=== PATIENT | male | born 1970 | race Caucasian/White ===

== ENCOUNTER 2017-06-14 11:57 | Emergency (ER) | payer BC ==
[2017-06-14 12:28] VITALS: BP 113/73
--- NOTE | 2017-06-14 13:05 | UC ---
Throat Pain/Nasal Sandip HPI - HPI Summary HPI Summary: SORE THROAT X 1 DAY NO FEVER, NO CHILLS, NO COUGH, NO NASAL CONGESTION SON WAS DX WITH STREP - History of Current Complaint Chief Complaint: UCGeneralIllness Stated Complaint: SORE THROAT Time Seen by Provider: 06/14/17 12:59 Hx Obtained From: Patient Onset/Duration: Gradual Onset, Lasting Days - 1, Still Present Severity: Moderate Pain Intensity: 2 Cough: None Associated Signs & Symptoms: Negative: Wheezing, Hoarseness, Sinus Discomfort, Nasal Discharge, Fever, Vomiting, Rash - Allergies/Home Medications Allergies/Adverse Reactions: Allergies Allergy/AdvReac Type Severity Reaction Status Date / Time No Known Allergies Allergy Verified 06/14/17 12:26 Home Medications: Home Medications Tamsulosin CAP* [Flomax CAP*] 0.4 mg PO BEDTIME 06/14/17 [History Confirmed ] PMH/Surg Hx/FS Hx/Imm Hx Previously Healthy: Yes - Surgical History Surgical History: Yes Surgery Procedure, Year, and Place: Gastric Sleeve, 03/15/14, [facility] [place], [place] - Family History Known Family History: Positive: Hypertension - Social History Alcohol Use: Rare Substance Use Type: None Smoking Status (MU): Never Smoked Tobacco Amount Used/How Often: CLOVES 1 PPD X 6-7 YEARS When Did the Patient Quit Smoking/Using Tobacco: 10 YEARS - Immunization History Most Recent Influenza Vaccination: Not the 2015/2016 Season Most Recent Tetanus Shot: 02/14/13 Most Recent Pneumonia Vaccination: HAS NOT HAD Review of Systems Constitutional: Negative Skin: Negative Eyes: Negative ENT: Sore Throat Respiratory: Negative Cardiovascular: Negative Gastrointestinal: Negative Is Patient Immunocompromised?: No All Other Systems Reviewed And Are Negative: Yes Physical Exam Triage Information Reviewed: Yes Appearance: Well-Appearing, No Pain Distress, Well-Nourished Vital Signs: Initial Vital Signs Temp 98.6 F 06/14/17 12:23 Pulse 58 06/14/17 12:23 Resp 14 06/14/17 12:23 BP 113/73 06/14/17 12:23 Pulse Ox 100 06/14/17 12:23 Vital Signs Reviewed: Yes Eye Exam: Normal Eyes: Positive: Conjunctiva Clear ENT: Positive: Normal ENT inspection, Hearing grossly normal, Pharyngeal erythema. Negative: Nasal congestion, Nasal drainage Neck exam: Normal Neck: Positive: Supple, Nontender, No Lymphadenopathy Respiratory: Positive: Chest non-tender, Lungs clear, Normal breath sounds, No respiratory distress Cardiovascular: Positive: RRR, No Murmur, Pulses Normal Skin Exam: Normal Throat Pain/Nasal Course/Dx - Differential Dx/Diagnosis Provider Diagnoses: VIRAL PHARYNGITIS Discharge - Discharge Plan Condition: Stable Disposition: HOME Referrals: Remy Jones DO [Primary Care Provider] -
== END 2017-06-14 13:32 | disposition home or self-care (01) ==
LOC: UCCORT 11:57
DX: J02.8 Acute pharyngitis due to other specified organisms (principal); F17.290 Nicotine dependence, other tobacco product, uncomplicated
CPT/HCPCS: 87651; 99211; G0463